=== PATIENT | female | born 1995 | race Caucasian/White ===

== ENCOUNTER → 2016-08-22 | Outpatient (CLI) | payer OTHER ==
[2016-08-22 15:58] LABS: BASOPHILS # (AUTO) 0.01 10*3/UL; BASOPHILS % (AUTO) 0.2 % (0-1); EOSINOPHILS % (AUTO) 0.9 % (0-8); HEMATOCRIT 35.9 % (37.0-47.0); HEMOGLOBIN 12.2 g/dL (12.0-16.0); IMM GRAN % (AUTO) 0.2 % (0-5); IMM GRAN# (AUTO) 0.01 10*3/UL; LYMPHOCYTES # (AUTO) 2.03 10*3/uL; LYMPHOCYTES % (AUTO) 35.1 % (10-50); MEAN CORPUSCULAR HEMOGLOBIN 28.6 PG (27-31); MEAN PLATELET VOLUME 9.8 FL (7.4-12.2); MONOCYTES # (AUTO) 0.42 10*3/UL (0.3-0.8); MONOCYTES % (AUTO) 7.3 % (5-15); NEUTROPHILS # (AUTO) 3.27 10*3/UL; NEUTROPHILS % (AUTO) 56.3 % (50-80); RDW COEFFICIENT OF VARIATION 13.6 % (11.5-14.5); RED BLOOD COUNT 4.27 10^6/uL (4.20-5.40); WHITE BLOOD COUNT 5.79 10^3/uL (4.8-10.8)
[2016-08-22 16:01] LABS: PLATELET MORPHOLOGY COMMENT NORMAL MORPHOLOGY (NORM)
[2016-08-22 16:03] LABS: PRENATAL QUESTION YES (Y)
[2016-08-22 16:18] LABS: HIV ANTIBODY NEGATIVE (N); HIV-1 P24 ANTIGEN NEGATIVE (N)
[2016-08-24 10:33] LABS: HEP B SURFACE AG Negative (Negative)
[2016-08-24 13:51] LABS: RUBELLA IGG INDEX 0.6 (()); SYPHILIS IGG WITH REFLEX Negative (Negative)
== END ==
LOC: MOB LAB 14:06
PROVIDERS: ATTEND Obstetrics & Gynecology
DX: Z36 Encounter for antenatal screening of mother (principal)
CPT/HCPCS: 36415; 80081; 86900; 86901; 87088

== ENCOUNTER → 2016-09-19 | Outpatient (CLI) | payer OTHER ==
--- NOTE | 2016-09-19 10:01 | DI ---
OBSTETRICAL ULTRASOUND, 09/19/2016 8:57 AM: Clinical History: Antepartum screening. Previous Exam: None at this facility for this . ADJUSTED DATE FROM EARLY OBUS: 05/07/2016. There is a single live IUP currently in transverse lie. Amnionic fluid content is normal. activ ity is observed as follows: Cardiac, extremity, and respiratory. The placenta is anterior corpus and Grade 1. heart rate is 156 beats/minute and regular. There is a 3 vessel cord. The RVOT, LVOT a nd 4 chamber heart view are normal. The aortic arch and descending aorta are normal. Views of the fet al spine, face, and kidneys are unremarkable. BPD, HC, AC, and FL measurements are 45 mm, 173 mm, 142 mm, and 32 mm, respectively. These measurements correspond to EGA values of 19 weeks 5 days, 19 week s 6 days, 19 weeks 4 days and 20 weeks 0 days, respectively. Composite EGA is 19 weeks 6 days. The US EDC is 02/07/2017. EDC by adjusted LMP is 02/14/2017. Readin. Single live fetus with transverse lie and normal amniotic fluid content. Placenta is anterior cor pus and grade 1. 2. The composite EGA is 19 weeks 6 days with an ultrasound EDC of 02/07/2017. This compares with the E DC by adjusted LMP of 02/14/2017.
== END ==
LOC: US 08:54
PROVIDERS: ATTEND Obstetrics & Gynecology
DX: Z36 Encounter for antenatal screening of mother (principal); Z3A.19 19 weeks gestation of pregnancy
CPT/HCPCS: 76805

== ENCOUNTER → 2016-11-19 | Outpatient (CLI) | payer OTHER ==
[2016-11-19 14:13] LABS: HEMATOCRIT 34.5 % (37.0-47.0); HEMOGLOBIN 11.5 g/dL (12.0-16.0); MEAN CORPUSCULAR HGB CONC 33.3 g/dL (33-37); MEAN CORPUSCULAR VOLUME 87.1 FL (81-99); RED BLOOD COUNT 3.96 10^6/uL (4.20-5.40)
[2016-11-21 17:56] LABS: FREE T4 (FREE THYROXINE) 0.74 ng/dL (0.93-1.71)
== END ==
LOC: LAB 12:52
PROVIDERS: ATTEND Obstetrics & Gynecology
DX: Z36 Encounter for antenatal screening of mother (principal); O26.893 Other specified pregnancy related conditions, third trimester; Z86.39 Personal history of other endocrine, nutritional and metabolic disease; Z3A.28 28 weeks gestation of pregnancy
CPT/HCPCS: 36415; 82950; 84439; 84443; 85027

== ENCOUNTER → 2017-01-15 | Outpatient (CLI) | payer OTHER | LOC: MOB LAB 10:40 | PROVIDERS: ATTEND Obstetrics & Gynecology | DX: Z36 Encounter for antenatal screening of mother (principal); Z3A.36 36 weeks gestation of pregnancy | CPT/HCPCS: 87150 ==

== ENCOUNTER 2017-01-23 08:48 | Outpatient (CLI) | payer OTHER ==
[2017-01-23 09:16] VITALS: RESP 16; TEMP 97.6
[2017-01-23] MEDS ORDERED: NORMAL SALINE 10 ML SYRINGE FLUSH IVP PRN (09:37)
--- NOTE | 2017-01-29 16:47 | PDOC(PROG) ---
Intake - - Reason for Visit/Chief Complaint: Decreased Movement Admitted From: Home - Estimated Due Date: 02/11/17 Gestational Age in Weeks and Days: 38 Weeks and 1 Days : 2 Para: 1 Living Children: 1 - Labs Blood Type and Rh: A+ Group B Strep: Negative Hepatitis B Surface Antigen: Absent HIV: Negative Rubella Status: Immune VDRL/RPR: Absent Maternal - Vital Signs Last Taken Vital Signs: Vital Signs - Last Taken Temperature 97.6 F 01/23/17 09:16 Pulse Rate 98 01/23/17 09:16 Respiratory Rate 16 01/23/17 09:16 Blood Pressure 118/64 01/23/17 09:16 Pulse Ox 99 01/23/17 09:16 - Uterine Activity Uterine Contraction Monitor Mode: External Contraction Frequency(minutes): X2 Contraction Duration (seconds): 60 Uterine Contraction Pattern: Irregular - Vaginal Discharge Vaginal Bleeding Amount: None Vaginal Discharge Amount: None Monitoring - Uterine Activity Uterine Contraction Monitor Mode: External Contraction Frequency(minutes): X2 Contraction Duration (seconds): 60 Uterine Contraction Pattern: Irregular Results - Bedside Testing Bedside Urine Ketone: Negative Bedside Urine Leukocytes Esterase: Negative Bedside Urine Nitrite: Negative Bedside Urine Occult Blood: Negative Bedside Urine Protein: Negative Bedside Specific [place]: 1.000 Assessment and Plan - Assessment / Plan Additional Assessment/Plan Details: Reassuring maternal and evaluation. Reactive NST. Discharge to home in good condition. - Time Time Spent With Patient: Less Than 15 Minutes
== END 2017-01-23 09:39 | disposition home or self-care (01) ==
LOC: OBOP 08:48
PROVIDERS: ATTEND Obstetrics & Gynecology
DX: O36.8130 Decreased fetal movements, third trimester, not applicable or unspecified (principal); Z3A.37 37 weeks gestation of pregnancy
CPT/HCPCS: 59025; 81003; 99211

== ENCOUNTER 2017-01-31 15:38 | Outpatient (CLI) | payer OTHER ==
[2017-01-31] MEDS ORDERED: NORMAL SALINE 10 ML SYRINGE FLUSH IVP PRN (15:40)
[2017-01-31 15:47] VITALS: RESP 16; TEMP 98
== END 2017-01-31 16:00 | disposition home or self-care (01) ==
LOC: OBOP 15:38
PROVIDERS: ATTEND Obstetrics & Gynecology
DX: O26.893 Other specified pregnancy related conditions, third trimester (principal); N89.8 Other specified noninflammatory disorders of vagina; Z3A.38 38 weeks gestation of pregnancy
CPT/HCPCS: 59025; 81003; 84112; 99211

== ENCOUNTER 2017-02-08 10:27 | Outpatient (CLI) | payer OTHER ==
[~2017-02-08 10:27] MED LIST: NORMAL SALINE 10 ML SYRINGE FLUSH IVP PRN
[2017-02-08 10:41] VITALS: RESP 16; TEMP 97.4
--- NOTE | 2017-02-08 12:06 | DI ---
US OB , LIMITED,02/08/2017 11:12 AM: Clinical History: Decreased amniotic fluid index. Previous Exam: September 19, 2016 Findings: Multiple grayscale and color Doppler sonographic images are obtained through the pelvis. Amniotic fluid index measures 12.5 cm. Detected Doppler heart tones measure 133 beats per minute. Impression: 1. Normal amniotic fluid index.
--- NOTE | 2017-02-09 10:54 | PDOC(PROG) ---
Intake - - Reason for Visit/Chief Complaint: Decreased Movement Admitted From: Home - Estimated Due Date: 02/11/17 Gestational Age in Weeks and Days: 39 Weeks and 5 Days : 2 Para: 1 Living Children: 1 - Labs Blood Type and Rh: A+ Group B Strep: Negative Hepatitis B Surface Antigen: Absent HIV: Negative Rubella Status: Immune VDRL/RPR: Absent Maternal - Vital Signs Last Taken Vital Signs: Vital Signs - Last Taken Temperature 97.4 F 02/08/17 10:27 Pulse Rate 95 02/08/17 10:27 Respiratory Rate 16 02/08/17 10:27 Blood Pressure Pulse Ox 99 02/08/17 10:27 - Uterine Activity Uterine Contraction Monitor Mode: External Uterine Contraction Intensity: Mild - Cervical Exam Cervical Dilation (cm): 2-3 Cervical Effacement Percentage: 75 Station: -1 - Vaginal Discharge Vaginal Bleeding Amount: None Vaginal Discharge Amount: None Monitoring - Uterine Activity Uterine Contraction Monitor Mode: External Uterine Contraction Intensity: Mild Results - Bedside Testing Bedside Urine Ketone: Negative Bedside Urine Leukocytes Esterase: Negative Bedside Urine Nitrite: Negative Bedside Urine Occult Blood: Negative Bedside Urine Protein: Negative Bedside Specific [place]: 1.010 Assessment and Plan - Assessment / Plan Additional Assessment/Plan Details: IUP 39-4/7 weeks with decreased movement but when patient arrived in labor and delivery she was feeling the baby move well. WIL was 12 cm and NST was reactive. The nurse checked the patient and I believe she was 3 cm dilated. Labor and delivery was busy with a patient who took a lot of nursing care and this patient was sent home with specific precautions and a known follow-up appointment. The plan was to contact the patient over the weekend to determine how she was doing. The patient expressed understanding and would return for problems or call labor and delivery.
== END 2017-02-08 11:50 | disposition home or self-care (01) ==
LOC: OBOP 10:27
PROVIDERS: ATTEND Obstetrics & Gynecology
DX: O36.8130 Decreased fetal movements, third trimester, not applicable or unspecified (principal); O26.893 Other specified pregnancy related conditions, third trimester; N89.8 Other specified noninflammatory disorders of vagina; Z3A.39 39 weeks gestation of pregnancy
CPT/HCPCS: 59025; 76815; 81003; 99211

== ENCOUNTER 2017-02-09 11:15 | Inpatient (IN) | payer OTHER ==
[2017-02-09] MEDS ORDERED: OXYTOCIN 10 UNIT/1 ML IM PRN (11:58)
[2017-02-09] MEDS ORDERED: NALOXONE 0.4 MG/1 ML VIAL IVP PRN (11:58)
[2017-02-09] MEDS ORDERED: LIDOCAINE W/ SODIUM BICARB 0.5 ML SYR SUBD PRN (11:58)
[2017-02-09] MEDS ORDERED: Famotidine Inj 20 MG in Normal Saline Flush 10 ML IVP PRN (11:58)
[2017-02-09] MEDS ORDERED: TERBUTALINE SULFATE 1 MG/1 ML SDV SUBCUT PRN (11:58)
[2017-02-09] MEDS ORDERED: Naloxone Inj 0.01 MG in Normal Saline Flush 1 ML IVP PRN (11:58)
[2017-02-09] MEDS ORDERED: fentaNYL Inj 100 MCG/2 ML VIAL IV PRN (11:58)
[2017-02-09] MEDS ORDERED: ONDANSETRON 4 MG/2 ML VIAL IVP PRN ×2 (11:58→17:40)
[2017-02-09] MEDS ORDERED: Metoclopramide Inj 10 MG/2 ML VIAL IV PRN (11:58)
[2017-02-09] MEDS ORDERED: MISOPROSTOL 200 MCG TABLET RECTAL PRN (11:58)
[2017-02-09] MEDS ORDERED: BUTORPHANOL TARTRATE 2 MG/1 ML VIAL IVP PRN (11:58)
[2017-02-09] MEDS ORDERED: NORMAL SALINE 10 ML SYRINGE FLUSH IVP PRN ×2 (11:58→17:40)
[2017-02-09] MEDS ORDERED: Carboprost Inj 250 MCG/ML AMP IM PRN ×2 (11:58→17:40)
[2017-02-09] MEDS ORDERED: CALCIUM CARBONATE 500 MG (TUMS) CHEWABLE TABLET PO PRN ×2 (11:58→17:40)
[2017-02-09] MEDS ORDERED: METHYLERGONOVINE MALEATE 0.2 MG/1 ML VIAL IM PRN ×2 (11:58→17:40)
[2017-02-09] MEDS ORDERED: Nalbuphine Inj 20 MG/ML Ampule IVP PRN ×2 (11:58→17:40)
[2017-02-09] MEDS ORDERED: CefOXitin Inj 2 GM in Sodium Chloride 0.9% 100 ML IV PRN (11:58)
[2017-02-09] MEDS ORDERED: Lidocaine 1% 10 MG/ML - 20 ML VIAL SUBCUT PRN (11:58)
[2017-02-09] MEDS ORDERED: diphenhydrAMINE 50 MG/1 ML VIAL IVP PRN ×2 (11:58→17:40)
[2017-02-09] MEDS ORDERED: CITRIC ACID/SODIUM CITRATE 30 ML CUP PO PRN (11:58)
[2017-02-09] MEDS ORDERED: Lactated Ringers-OB Dept 1,000 ML PRIMARY IV SCH (12:00)
[2017-02-09] MEDS ORDERED: Oxytocin 20 Units + LR 1,000 ML IV SCH ×2 (12:00→17:40)
[2017-02-09 12:40] LABS: HEMATOCRIT 35.3 % (37.0-47.0); HEMOGLOBIN 11.6 g/dL (12.0-16.0); MEAN CORPUSCULAR HEMOGLOBIN 27.9 PG (27-31); MEAN CORPUSCULAR HGB CONC 32.9 g/dL (33-37); MEAN CORPUSCULAR VOLUME 84.9 FL (81-99); MEAN PLATELET VOLUME 9.7 FL (7.4-12.2); RED BLOOD COUNT 4.16 10^6/uL (4.20-5.40)
--- NOTE | 2017-02-09 15:19 | OB.PROGRES ---
Interval History: The patient is a 21-year-old at 39-5/7 weeks who started rosaline this morning around 0200 hrs. and they increased in intensity. Patient presented to labor and delivery about 2+ hours ago. Her cervix changed from 5 cm to 6 cm and the contractions increased in intensity. The patient has had no specific complications with her . She has anterior placenta by 20 week ultrasound. Past medical history noncontributory Past surgical history significant for a hymenal tag excision in April 2016 after having a repair for her vaginal delivery the year before and having some irritation in that area. She is also had an umbilical hernia repair and an appendectomy. No known drug allergies. She is allergic to grass pollen. Objective - Cervical Exam Cervical Exam: 5-6/80/-2 cephalic. AROM with clear fluid but not a lot of fluid. Heart Rate Interpretation Category: Category I - Labs CBC and BMP: 02/09/17 11:58 Labs - Last 24 Hours: Laboratory Results 02/09/17 Range/Units 11:58 WBC 7.64 (4.8-10.8) 10^3/uL RBC 4.16 L (4.20-5.40) 10^6/uL Hgb 11.6 L (12.0-16.0) g/dL Hct 35.3 L (37.0-47.0) % MCV 84.9 (81-99) FL MCH 27.9 (27-31) PG MCHC 32.9 L (33-37) g/dL RDW Std Deviation 41.6 (39-50) fL RDW Coeff of [place] 13.6 (11.5-14.5) % Plt Count 236 (140-350) 10*3/uL MPV 9.7 (7.4-12.2) FL - Vital Signs Last Taken Vital Signs: Vital Signs - Last Taken Temperature 98 F 02/09/17 12:11 Pulse Rate 90 02/09/17 14:11 Respiratory Rate 18 02/09/17 14:11 Blood Pressure 123/73 02/09/17 14:11 Pulse Ox 99 02/09/17 14:11 Assessment and Plan - Assessment / Plan Additional Assessment/Plan Details: Assessment: IUP 39-5/7 weeks with prior vaginal delivery. Patient with active labor. AROM with clear fluid. The patient believes that this baby is slightly smaller than her last baby. Patient has a history of rapid labors after AROM. GBS negative Plan: Expectant management and observe closely.
--- NOTE | 2017-02-09 17:33 | OB.OP.NOTE ---
Operative Report Surgeon: Juliocesar Anesthesia Type: Local (1% lidocaine without epinephrine, IV fentanyl) Surgery Date: 02/09/17 Preoperative Diagnosis: IUP 39-5/7 weeks with active labor Postoperative Diagnosis: Same. Second degree laceration Procedure: Spontaneous vaginal delivery. Repair of second-degree laceration Estimated Blood Loss (mL): 400 Fluids: Pitocin IV after third stage of labor-after placenta delivered Complications: None apparent There was a body cord which reduced with delivery of the baby Findings at Surgery: Female infant with Apgars 8 and 9 Weight 7 lbs. 6 oz. Indications for the Procedure: 21-year-old at 39-5/7 weeks with active labor. Description of Procedure: Delivery note: The patient got to complete after AROM and then ambulating for a while. Her cervix then dilated from 6 cm to 8 cm and then complete and then +3 station. The patient was very uncomfortable secondary to the labor. The patient had received IV fentanyl about 10 minutes prior. The patient pushed a couple times and I protected the perineum as the head delivered. The head was delivered and then the anterior shoulder and then the posterior shoulder and then body. There was a body cord but it reduced easily with delivery. Delayed cord clamping for about 45-60 seconds. The cord was then clamped and cut. The baby was handed off to the nurses and actually to the mother's chest. A section of cord was obtained for cord gases in case but the baby was doing very well and actually cord gases were not obtained. Cord blood was obtained. The placenta then delivered about 15 minutes later. 1% lidocaine without epinephrine was injected into the second-degree laceration. I then repaired the second-degree laceration the usual fashion with 3-0 Vicryl Rapide suture starting at the apex in the vagina with my first suture and then locking the sutures to the hymenal ring and then diving down to the perineum and then tying one not and then continuing to close the deeper tissue and the perineum and then a subcuticular along the perineum and then I don't back into the vagina with the needle and then tied by suture. There was good approximation of the laceration. The patient also had a laceration just inferior to the clitoris but this was not bleeding and so I did not suture this. A rectal exam was completed and there were no buttonhole fistulas. EBL was 400 mL Findings were a female infant with Apgars of 8 and 9 with weight of 7 lbs. 6 oz. The patient and her baby will recover in the delivery room and then perhaps a room if we need the availability of the delivery room. There was good hemostasis at the end of the procedure. I did attempt to visualize the patient's cervix but I could only see the anterior lip of the cervix and the patient was very uncomfortable secondary to not having an epidural slight could not visualize the rest of the patient's cervix. Plan: The patient and her baby will recover in the room. All Sitz baths starting tomorrow
[2017-02-09] MEDS ORDERED: Methylergonovine Tab 0.2 MG TAB PO PRN (17:40)
[2017-02-09] MEDS ORDERED: GLYCERIN/WITCH HAZEL 1 BOX TOPICAL PRN (17:40)
[2017-02-09] MEDS ORDERED: HYDROcodone-APAP 5 MG -325 MG TABLET PO PRN (17:40)
[2017-02-09] MEDS ORDERED: Ondansetron ODT Tab 4 MG TAB PO PRN (17:40)
[2017-02-09] MEDS ORDERED: diphenhydrAMINE 25 MG CAPSULE PO PRN (17:40)
[2017-02-09] MEDS ORDERED: DIPH,PERTUSS,TET(ADACEL) VAC/PF 0.5 ML (Tdap) IM ONE (17:40)
[2017-02-09] MEDS ORDERED: BENZOCAINE/MENTHOL SPRAY 56 GM BOTTLE TOPICAL PRN (17:40)
[2017-02-09] MEDS ORDERED: MISOPROSTOL 200 MCG TABLET RECTAL ONE (17:40)
[2017-02-09] MEDS ORDERED: ACETAMINOPHEN 325 MG TABLET PO PRN (17:40)
[2017-02-09] MEDS ORDERED: IBUPROFEN 800 MG TABLET PO PRN (17:40)
[2017-02-09] MEDS ORDERED: OXYTOCIN 10 UNIT/1 ML IM ONE (17:40)
[2017-02-09] MEDS ORDERED: LANOLIN HPA 40 GM TUBE TOPICAL PRN (17:40)
[2017-02-09] MEDS: DOCUSATE 100 MG CAPSULE PO SCH (21:37)
[2017-02-10 05:58] LABS: HEMATOCRIT 33.5 % (37.0-47.0); HEMOGLOBIN 10.8 g/dL (12.0-16.0); MEAN CORPUSCULAR HEMOGLOBIN 27.3 PG (27-31); MEAN CORPUSCULAR HGB CONC 32.2 g/dL (33-37); MEAN CORPUSCULAR VOLUME 84.6 FL (81-99); MEAN PLATELET VOLUME 10.2 FL (7.4-12.2); RED BLOOD COUNT 3.96 10^6/uL (4.20-5.40)
[2017-02-10] MEDS: DOCUSATE 100 MG CAPSULE PO SCH (08:39)
[2017-02-10] MEDS ORDERED: Prenatal Multivitamin Tab 1 TAB TAB PO SCH (09:00)
--- NOTE | 2017-02-10 09:59 | OB.PROGRES ---
Subjective Post Day: 1 Pain Management: PO [place] Catheter: No Flatus: Yes Diet: Regular Rainbow Feeding Method: Exculsively Ambulating: Yes Concerns / Additional Information: The patient desires to go home today. She is breast-feeding. She has good support at home. Objective - General General Appearance: POSITIVE: No Acute Distress, Cooperative - Cardiovacular Cardiovascular Exam: POSITIVE: RRR Edema: No Pedal Edema Extremities: Negative Johny's - Bilaterally - Respiratory Respiratory Exam: POSITIVE: Clear to Auscultation - Bilaterally - Fundus/Lochia/Perineum Uterus Consistency: Firm Uterus Position: POSITIVE: Below Umbilicus Assesstment / Plan Assessment / Plan: Assessment: day #1 status post with second-degree laceration with repair. Patient doing very well. H&H 10 and 30. Plan: Discharge home later today Iron-ferrous sulfate 325 mg-1 tablet daily for 30 days Colace 100 mg capsule-1 tablet daily to twice a day when necessary constipation secondary to iron Ibuprofen 800 mg 1 tablet by mouth 3 times a day with food or milk for 5 days then as needed Multivitamin daily. Patient may choose which type. 400 g of folic acid should be in the multivitamin but most multivitamins have at least 400 g of folic acid Usual precautions should be discussed with the patient by nurse. Follow-up for 6 week visit with patient's health economist Return to clinic or emergency room sooner for problems. We did discuss the possibility of heavy bleeding a couple weeks after delivery for a couple hours. If bleeding persists, patient should be evaluated.
[2017-02-10] MEDS ORDERED: Famotidine Inj 20 MG in Normal Saline Flush 10 ML IVP PRN (11:00)
[2017-02-10 14:48] VITALS: RESP 17; TEMP 98.2
== END 2017-02-10 17:37 | disposition home or self-care (01) | DRG 775 ==
LOC: UNDOADMIN 11:58 → OBIP 11:58 → EDSTATUS 12:05 → UNDODISIN 02-10 17:37
PROVIDERS: ADMIT Obstetrics & Gynecology; ATTEND Obstetrics & Gynecology
PROC: 10E0XZZ Delivery of Products of Conception, External Approach (ICD-10-PCS; principal; 2017-02-09)
PROC: 0KQM0ZZ Repair Perineum Muscle, Open Approach (ICD-10-PCS; 2017-02-09)
DX: O70.1 Second degree perineal laceration during delivery (principal); Z37.0 Single live birth; Z3A.39 39 weeks gestation of pregnancy
CPT/HCPCS: 36415; 85027; J2210; J3010